=== PATIENT | female | born 1950 | race Caucasian/White ===

== ENCOUNTER 2020-12-22 12:19 | Outpatient (REF) | payer MEDICARE, OTHER, SELFPAY ==
--- NOTE | ~2020-12-22 | MM_ITS ---
EXAMINATION: MM SCREENING DIGITAL BREAST TOMOSYNTHESIS, BILATERAL CLINICAL INFORMATION: Screening. Asymptomatic. The lifetime risk of breast cancer based on the Tyrer-Cuzick Model is 4.0%. COMPARISON: Mammography: 06/20/2020 and studies dating back to 08/18/2016. TECHNIQUE: Digital breast tomosynthesis is performed in both the craniocaudal and mediolateral oblique views along with computer-aided detection (CAD). Synthesized 2D images are generated from the tomosynthesis. FINDINGS: There are scattered areas of fibroglandular density (ACR BI-RADS breast composition Category b). There are no significant masses, abnormal calcifications, or other abnormalities. There is a stable circumscribed density seen in the central aspect of the left breast on craniocaudal view which appears a little more prominent on generated views, however, on tomosynthesis views the questioned increase in size appears to be related to superimposed fibroglandular tissue rather than enlargement of the circumscribed density. MM/MM tomosynthesis screening BI IMPRESSION: There are no significant changes from prior study. ASSESSMENT: BI-RADS 2: Benign. RECOMMENDATION: Routine annual mammography screening. This patient's information was entered into a reminder system with a target due date for their next mammogram.
== END 2020-12-22 12:20 | disposition home or self-care (01) ==
LOC: HO.MAMMO 12:19
PROVIDERS: PCP Internal Medicine; Visit Provider Internal Medicine
DX: Z12.31 Encounter for screening mammogram for malignant neoplasm of breast (principal)
CPT/HCPCS: 77063; 77067

== ENCOUNTER 2022-02-07 07:01 | Outpatient (REF) | payer MEDICARE, OTHER, SELFPAY ==
[2022-02-07 08:09] LABS: Alanine Aminotransferase 38 U/L (0-31); Albumin Level 4.3 g/dL (3.5-5.0); Alkaline Phosphatase 71 U/L (39-117); Anion Gap 16 (12-20); Aspartate Amino Transferase 26 U/L (5-31); Bilirubin Total 0.6 mg/dL (0.0-1.0); Blood Urea Nitrogen 23 mg/dL (9-16); Calcium 10.1 mg/dL (8.4-10.2); Carbon Dioxide 24 mmol/L (22-29); Chloride 106 mmol/L (96-108); Cholesterol 225 mg/dL; Estimated Glomerular Filt Rate > 60; Glucose Fasting 115 mg/dL (60-99); HDL Cholesterol 54 mg/dL; LDL Cholesterol Calculated 131 mg/dl; Potassium 3.9 mmol/L (3.3-5.1); Sodium 142 mmol/L (135-145); Total Protein 7.2 g/dL (6.5-8.0); Triglycerides 204 mg/dL
[2022-02-07 08:20] LABS: Thyroid Stimulating Hormone 1.22 uIU/mL (0.32-4.0)
== END 2022-02-07 07:02 | disposition home or self-care (01) ==
LOC: HO.LAB 07:01
PROVIDERS: PCP Internal Medicine; Visit Provider Internal Medicine
DX: E78.5 Hyperlipidemia, unspecified (principal); E66.3 Overweight; R03.0 Elevated blood-pressure reading, without diagnosis of hypertension
CPT/HCPCS: 36415; 80053; 80061; 84443

== ENCOUNTER 2022-11-07 07:03 | Outpatient (REF) | payer MEDICARE, SELFPAY ==
[2022-11-07 08:08] LABS: Alanine Aminotransferase 34 U/L (0-31); Albumin Level 4.3 g/dL (3.5-5.0); Alkaline Phosphatase 68 U/L (39-117); Anion Gap 19 (12-20); Aspartate Amino Transferase 25 U/L (5-31); Bilirubin Total 1.2 mg/dL (0.0-1.0); Blood Urea Nitrogen 17 mg/dL (9-16); Calcium 9.5 mg/dL (8.4-10.2); Carbon Dioxide 22 mmol/L (22-29); Chloride 107 mmol/L (96-108); Cholesterol 220 mg/dL; Estimated Glomerular Filt Rate 59; Glucose Fasting 120 mg/dL (60-99); HDL Cholesterol 54 mg/dL; LDL Cholesterol Calculated 134 mg/dl; Potassium 4.2 mmol/L (3.3-5.1); Sodium 144 mmol/L (135-145); Total Protein 6.9 g/dL (6.5-8.0); Triglycerides 164 mg/dL
== END 2022-11-07 07:04 | disposition home or self-care (01) ==
LOC: HO.LAB 07:03
PROVIDERS: PCP Internal Medicine; Visit Provider Internal Medicine
DX: E78.5 Hyperlipidemia, unspecified (principal); E78.00 Pure hypercholesterolemia, unspecified
CPT/HCPCS: 36415; 80053; 80061

== ENCOUNTER 2023-02-01 11:55 | Outpatient (REF) | payer MEDICARE, SELFPAY ==
--- NOTE | ~2023-02-01 | MM_ITS ---
EXAMINATION: MM SCREENING DIGITAL BREAST TOMOSYNTHESIS, BILATERAL CLINICAL INFORMATION: Screening. Asymptomatic. The lifetime risk of breast cancer based on the Tyrer-Cuzick Model is 4%. COMPARISON: Mammography: 12/22/2020, 06/20/2020, 12/18/2019, 12/12/2019, 10/03/2018; ultrasound left breast 12/18/2019. TECHNIQUE: Digital breast tomosynthesis is performed in both the craniocaudal and mediolateral oblique views along with computer-aided detection (CAD). Synthesized 2D images are generated from the tomosynthesis. FINDINGS: The breasts are almost entirely fatty (ACR BI-RADS breast composition Category a). Background stromal and fibroglandular markings are normal. The transient fat necrosis posterior medial left breast noted in 2019 has resolved. There is no developing density or architectural abnormality. There are scattered benign round, rim, predominantly dermal calcifications again seen. The axilla and skin contours are unremarkable. No significant changes. MM/MM tomosynthesis screening BI IMPRESSION: No mammographic evidence of malignancy. ASSESSMENT: BI-RADS 2: Benign RECOMMENDATION: Routine annual mammography screening. This patient's information was entered into a reminder system with a target due date for their next mammogram.
== END 2023-02-01 11:56 | disposition home or self-care (01) ==
LOC: HO.MAMMO 11:55
PROVIDERS: PCP Internal Medicine; Visit Provider Internal Medicine
DX: Z12.31 Encounter for screening mammogram for malignant neoplasm of breast (principal)
CPT/HCPCS: 77063; 77067

== ENCOUNTER 2023-04-10 06:41 | Outpatient (REF) | payer MEDICARE, SELFPAY ==
[2023-04-10 09:22] LABS: Alanine Aminotransferase 28 U/L (0-31); Albumin Level 4.1 g/dL (3.5-5.0); Alkaline Phosphatase 74 U/L (39-117); Anion Gap 17 (12-20); Aspartate Amino Transferase 19 U/L (5-31); Bilirubin Total 1.3 mg/dL (0.0-1.0); Blood Urea Nitrogen 18 mg/dL (9-16); Calcium 9.4 mg/dL (8.4-10.2); Carbon Dioxide 21 mmol/L (22-29); Chloride 110 mmol/L (96-108); Cholesterol 130 mg/dL; Estimated Glomerular Filt Rate > 60; Glucose Fasting 105 mg/dL (60-99); HDL Cholesterol 49 mg/dL; LDL Cholesterol Calculated 57 mg/dl; Sodium 144 mmol/L (135-145); Total Protein 6.9 g/dL (6.5-8.0); Triglycerides 123 mg/dL
== END 2023-04-10 06:42 | disposition home or self-care (01) ==
LOC: HO.LAB 06:41
PROVIDERS: PCP Internal Medicine; Visit Provider Internal Medicine
DX: Z00.00 Encounter for general adult medical examination without abnormal findings (principal); E78.5 Hyperlipidemia, unspecified
CPT/HCPCS: 36415; 80053; 80061

== ENCOUNTER 2023-04-16 14:55 | Outpatient (AMB) | payer MEDICARE, SELFPAY ==
--- NOTE | 2023-04-16 14:57 | A.OFFPC_ITS ---
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 Accompanied by: Self / Same As Patient Allergies penicillin V Allergy (Unknown, Verified 04/16/23 15:05) anaphylaxis tetracycline Allergy (Unknown, Verified 04/16/23 15:05) rash Compazine Allergy (Unknown, Uncoded 04/16/23 15:05) convulsions Medication List - Last Reconciled 04/16/23 by Kimber Wagner MD amlodipine 5 mg PO DAILY 90 days atorvastatin 20 mg PO BEDTIME 90 days blood pressure monitor (Blood Pressure Kit) As directed lisinopril 20 mg PO BID 90 days Tobacco use date assessed: 11/14/22 Fall risk assessment: No Falls in past year Last assessed Fall Risk: 04/16/23 Dental Screening Dental Screen Date: 04/16/23 Did you have a dental visit in the last 12 months?: Yes Did you have a dental problem in the last 6 months where you did not have access to dental care?: No Was dental information given to patient?: Patient has dentist HPI HPI Comments History of Present Illness Details This is a 72 year old female with hypertension, pure hypercholesterolemia and impaired glucose tolerance that comes today for follow- up on her conditions. Blood pressure stable. Cholesterol has markedly improved with statins. Glucose has markedly improved. No chest pain or shortness of breath. [facility] Medical History Elevated blood pressure reading in office without diagnosis of hypertension Essential hypertension Overweight Surgical History History of cholecystectomy Family History Mother Mental health disorder Father Lymphoma Social History Housing: Condominium Alcohol intake: never Patient Tobacco Use Status: Former Tobacco user Tobacco use type: Cigarette e-Cigarette/Vaping Use: Never Used Second Hand Smoke Exposure: No service: No Current occupational status: employed and retired Cognitive needs: No Hearing needs: No Vision needs: Yes Questionnaire Thrive Questionnaire Date Thrive assessed: 11/14/22 TAMEKA-7 AMB Questionnaire TAMEKA-7 Date TAMEKA - 7 assessed: 11/14/22 Source: Developed by Drs. Davide Ponce, Mirna Lund, Kg Junior and colleagues, with an educational neymar from [employer]. Review of Systems Const All systems reviewed & are unremarkable except as noted in HPI and below Eyes Reports no additional complaints, Denies change in vision and Denies other visual disturbances Card Denies chest pain at rest, Denies chest pain with activity, Denies edema, Denies irregular heart rhythm, Denies claudication, Denies dyspnea, Denies dyspnea on exertion, Denies orthopnea, Denies paroxysmal nocturnal dyspnea and Denies slow heart rate Resp Denies cough, Denies dyspnea and Denies dyspnea on exertion GI Denies abdominal pain, Denies change in bowel habits, Denies excessive flatus, Denies nausea and Denies vomiting Denies urinary incontinence, Denies urinary hesitancy and Denies urinary urgency Musc Denies abnormal gait, Denies atrophy, Denies deformity and Denies limited range of motion Skin/Breast Denies bleeding lesions, Denies changing lesions and Denies rash Neuro Denies abnormal gait and Denies lack of coordination Physical exam (Primary Care) Vital Signs: Last Vital Signs BP 124/80 04/16/23 14:58 BMI result Body Mass Index 28.9 Tobacco/Smoking Status: Tobacco use Status Tobacco use date assessed 11/14/22 04/16/23 15:03 Patient Tobacco Use Status Former Tobacco user 04/16/23 15:03 Tobacco use type Cigarette 04/16/23 15:03 e-Cigarette/Vaping Use Never Used 04/16/23 15:03 Thrive Assessment: Date of Thrive Assessment Date Thrive assessed 11/14/22 04/16/23 15:03 Eyes General: appearance normal, both eyes and all related structures Eyelids: Yes eyelids normal Conjunctivae: conjunctivae normal Neck Neck: Yes normal visual inspection and Yes supple Resp Effort & Inspection: normal respiratory effort Auscultation: clear to auscultation bilaterally Cardio Jugular venous distension: no JVD Rate: regular rate Rhythm: regular rhythm Heart sounds: S1 normal heart sound present and S2 normal heart sound present Extrem General: Yes full ROM Assessment and Plan Assessment & Plan (1) Essential hypertension: Code(s): I10 - Essential (primary) hypertension Plan: Continue lisinopril and amlodipine. Pressure goal is equal or less than 130/80 (2) Pure hypercholesterolemia: Code(s): E78.00 - Pure hypercholesterolemia, unspecified Plan: Continue statins. (3) Impaired glucose tolerance: Code(s): R73.02 - Impaired glucose tolerance (oral) Plan: Continue low-carbohydrate diet. Orders: Orders Comprehensive [place]. Panel Fast 7 Months I10 - Essential (primary) hypertension Lipid Panel 7 Months E78.5 - Hyperlipidemia, unspecified Coding Level of Care Code Est Pt Level 3 (20274) Diagnoses Essential hypertension I10 Pure hypercholesterolemia E78.00 Impaired glucose tolerance R73.02 Time Spent (min) 18
[2023-04-16 14:58] VITALS: BP 124/80; BMI 28.9
== END 2023-04-16 15:11 | disposition home or self-care (01) ==
PROVIDERS: PCP Internal Medicine; Visit Provider Internal Medicine
DX: I10 Essential (primary) hypertension (principal); E78.00 Pure hypercholesterolemia, unspecified; R73.02 Impaired glucose tolerance (oral)
CPT/HCPCS: 99213

== ENCOUNTER 2023-11-13 06:53 | Outpatient (REF) | payer MEDICARE, SELFPAY ==
[2023-11-13 08:37] LABS: Alanine Aminotransferase 34 U/L (0-31); Albumin Level 4.2 g/dL (3.5-5.0); Alkaline Phosphatase 81 U/L (39-117); Anion Gap 15 (12-20); Aspartate Amino Transferase 25 U/L (5-31); Bilirubin Total 1.1 mg/dL (0.0-1.0); Blood Urea Nitrogen 21 mg/dL (9-16); Calcium 9.7 mg/dL (8.4-10.2); Carbon Dioxide 23 mmol/L (22-29); Chloride 111 mmol/L (96-108); Cholesterol 134 mg/dL (<200); Estimated Glomerular Filt Rate 56; Glucose Fasting 114 mg/dL (60-99); HDL Cholesterol 43 mg/dL (>40); LDL Cholesterol Calculated 66 mg/dL (<100); Potassium 3.8 mmol/L (3.3-5.1); Sodium 145 mmol/L (135-145); Total Protein 7.4 g/dL (6.5-8.0); Triglycerides 128 mg/dL (<150)
== END 2023-11-13 06:54 | disposition home or self-care (01) ==
LOC: HO.LAB 06:53
PROVIDERS: PCP Internal Medicine; Visit Provider Internal Medicine
DX: I10 Essential (primary) hypertension (principal); E78.5 Hyperlipidemia, unspecified
CPT/HCPCS: 36415; 80053; 80061

== ENCOUNTER 2023-11-20 17:22 | Outpatient (AMB) | payer MEDICARE, SELFPAY ==
--- NOTE | 2023-11-20 17:18 | MHC.PC.OV ---
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 Accompanied by: Self / Same As Patient Allergies penicillin V Allergy (Unknown, Verified 11/20/23 17:42) anaphylaxis tetracycline Allergy (Unknown, Verified 11/20/23 17:42) rash Compazine Allergy (Unknown, Uncoded 11/20/23 17:42) convulsions Medication List - Last Reconciled 11/20/23 by Kimber Wagner MD amlodipine 5 mg PO DAILY 90 days atorvastatin 20 mg PO BEDTIME 90 days blood pressure monitor (Blood Pressure Kit) As directed lisinopril 20 mg PO BID 90 days Tobacco use date assessed: 11/20/23 Fall risk assessment: No Falls in past year Last assessed Fall Risk: 11/20/23 Dental Screening Dental Screen Date: 11/20/23 Did you have a dental visit in the last 12 months?: Yes Did you have a dental problem in the last 6 months where you did not have access to dental care?: No Was dental information given to patient?: Patient has dentist HPI HPI Comments History of Present Illness Details This is a 73-year-old female that comes for her physical exam. Mammogram done January 2023. Had Cologuard done 2021 and was negative. No family history of colon cancer. Denies blood in the stools. Blood pressure stable. Has impaired glucose tolerance and was advised that if unintentional weight loss, polyuria or polydipsia are present to let me know. Cholesterol stable with statins. [facility] Medical History Essential hypertension Overweight Elevated blood pressure reading in office without diagnosis of hypertension Surgical History History of cholecystectomy Family History Mother Mental health disorder Father Lymphoma Social History Housing: Condominium Alcohol intake: never Patient Tobacco Use Status: Former Tobacco user Tobacco use type: Cigarette e-Cigarette/Vaping Use: Never Used Second Hand Smoke Exposure: No service: No Current occupational status: employed and retired Cognitive needs: No Hearing needs: No Vision needs: Yes Questionnaire PHQ-9 Over the last 2 weeks, how often have you been bothered by any of the following problems? 1. Little interest or pleasure in doing things: not at all 2. Feeling down, depressed, or hopeless: not at all 3. Trouble falling or staying asleep, or sleeping too much: not at all 4. Feeling tired or having little energy: not at all 5. Poor appetite or overeating: not at all 6. Feeling bad about yourself - or that you are a failure or have let yourself or your family down: not at all 7. Trouble concentrating on things, such as reading the newspaper or watching television: not at all 8. Moving or speaking so slowly that other people could have noticed. Or the opposite - being so fidgety or restless that you have been moving around a lot more than usual: not at all 9. Thoughts that you would be better off or of hurting yourself in some way: not at all Total score: 0 Depression Screening Interpretation: Negative Depression Screening Done: Yes 94704 - PHQ-9 Billing: Yes Source: Developed by Drs. Davide Ponce, Mirna Lund, Kg Junior and colleagues, with an educational neymar from [employer]. Thrive Questionnaire Date Thrive assessed: 11/20/23 I am a: Patient What is your living situation today?: I have a steady place to live Within the past 12 months, did the food you bought not last and you didn't have the money to get more?: Never true Within the past 12 months, did you worry whether your food would run out before you got money to buy more?: Never true Do you have trouble paying for medicines?: No Do you have trouble getting transportation to medical appointments?: No Do you have trouble paying your heating and electricity bill?: No Do you have trouble taking care of your child, family member or friend?: No Do you have trouble with day-to-day activities such as bathing, preparing meals, shopping, managing finances, etc.?: No Are you currently unemployed and looking for a job?: No Are you interested in more education?: No Please select the resources that you would like help with: None Currently or been in a relationship where the following occur: no concerns reported THRIVE Score: 0 AUDIT C Alcohol Use Questionnaire (AUDIT-C) 1. How often do you have a drink containing alcohol?: Never Total Score: 0 Score Reviewed/Action Taken: No TAMEKA-7 AMB Questionnaire TAMEKA-7 Date TAMEKA - 7 assessed: 11/20/23 Feeling nervous, anxious, or on edge: 0 = Not at all Not being able to stop or control worryin = Not at all Worrying too much about different things: 0 = Not at all Trouble relaxin = Not at all Being so restless that it is hard to sit still: 0 = Not at all Becoming easily annoyed or irritable: 0 = Not at all Feeling afraid as if something awful might happen: 0 = Not at all Total TAMEKA-7 score (0-4 normal; 5-9 mild; 10-14 moderate; 15-21 severe): 0 Source: Developed by Drs. Davide Ponce, Mirna Lund, Kg Junior and colleagues, with an educational neymar from [employer]. TAMEKA-7 Assessment Billing TAMEKA-7 Assessment Tool: TAMEKA-7 Assessment 47227 Review of Systems Const All systems reviewed & are unremarkable except as noted in HPI and below Eyes Reports no additional complaints, Denies change in vision and Denies other visual disturbances Card Denies chest pain at rest, Denies chest pain with activity, Denies edema, Denies irregular heart rhythm, Denies claudication, Denies dyspnea, Denies dyspnea on exertion, Denies orthopnea, Denies paroxysmal nocturnal dyspnea and Denies slow heart rate Resp Denies cough, Denies dyspnea and Denies dyspnea on exertion GI Denies abdominal pain, Denies change in bowel habits, Denies excessive flatus, Denies nausea and Denies vomiting Denies urinary incontinence, Denies urinary hesitancy and Denies urinary urgency Musc Denies abnormal gait, Denies atrophy, Denies deformity and Denies limited range of motion Skin/Breast Denies bleeding lesions, Denies changing lesions and Denies rash Neuro Denies abnormal gait, Denies behavioral changes, Denies confusion and Denies lack of coordination Psych Denies behavioral changes and Denies confusion Physical exam (Primary Care) Vital Signs: Last Vital Signs BP 132/86 11/20/23 17:20 BMI result Body Mass Index 28.9 Tobacco/Smoking Status: Tobacco use Status Tobacco use date assessed 11/20/23 11/20/23 17:27 Patient Tobacco Use Status Former Tobacco user 11/20/23 17:27 Tobacco use type Cigarette 11/20/23 17:27 e-Cigarette/Vaping Use Never Used 11/20/23 17:27 PHQ-9: PHQ-9 Score PHQ-9: Total score 0 11/20/23 17:27 Depression Screening Interpretation: Negative Thrive Assessment: Date of Thrive Assessment Date Thrive assessed 11/20/23 11/20/23 17:27 Currently or been in a relationship where the following occur: no concerns reported Const General: No confusion Orientation/consciousness: patient oriented x3 and No confusion HENMT Head: Yes normal to inspection, Yes normocephalic and Yes atraumatic Ears: external ears normal Eyes General: appearance normal, both eyes and all related structures Eyelids: Yes eyelids normal Conjunctivae: conjunctivae normal Neck Neck: Yes normal visual inspection and Yes supple Resp Effort & Inspection: normal respiratory effort Auscultation: clear to auscultation bilaterally Cardio Jugular venous distension: no JVD Rate: regular rate Rhythm: regular rhythm Heart sounds: S1 normal heart sound present and S2 normal heart sound present GI Inspection: Yes normal to inspection Palpation (GI): Soft to palpation and nontender Auscultation: normal bowel sounds Skin General skin exam: no rashes or lesions noted Neuro General: patient oriented x3, no focal motor deficits and No confusion Extrem General: Yes full ROM Psych Appearance: grossly normal Assessment and Plan Assessment & Plan (1) Physical exam: Code(s): Z00.00 - Encounter for general adult medical examination without abnormal findings Plan: Repeat in a year. Orders: Orders XR DEXA axial skeleton Today N95.9 - Unspecified menopausal and perimenopausal disorder Coding Level of Care Code Est Pt Prev Care >65y(30106) Diagnoses Physical exam Z00.00 Additional Codes TAMEKA-7 Assessment Billing - TAMEKA-7 Assessment Tool: TAMEKA-7 Assessment 31646 ([id number]) Time Spent (min) 31
[2023-11-20 17:20] VITALS: BP 132/86; BMI 28.9
== END 2023-11-20 17:52 | disposition home or self-care (01) ==
PROVIDERS: PCP Internal Medicine; Visit Provider Internal Medicine
DX: Z00.00 Encounter for general adult medical examination without abnormal findings (principal)
CPT/HCPCS: 99397

== ENCOUNTER 2024-02-07 13:48 | Outpatient (REF) | payer MEDICARE, SELFPAY ==
--- NOTE | ~2024-02-07 | MM_ITS ---
EXAMINATION: BONE DENSITOMETRY CLINICAL INDICATION: Menopause. COMPARISON: This is the patient's baseline examination. TECHNIQUE: Using a [place] [employer] DXA System (software version: 13.1) manufactured by [employer], dual-energy x-ray absorptiometry was performed of the lumbar spine and left hip. The images are of good technical quality. Summary results are attached. FINDINGS: LEFT FEMUR, NECK: BMD 0.939 g/cm2, Z-score 0.8, T-score -0.7, normal. LEFT FEMUR, TOTAL: BMD 1.130 g/cm2, Z-score 2.3, T-score 1.0, normal. AP SPINE L1-L4 (excluding L2 and L3): The data of L1-L4 has been changed to exclude the L2 and L3 vertebral bodies, because degenerative sclerosis at these levels may cause overestimation of lumbar spine density. BMD 1.684 g/cm2, Z-score 5.6, T-score 4.3, normal. IDENTIFIED RISK FACTORS: Menopause. HISTORY OF FRACTURE: None listed. MEDICATIONS: None listed. MM/XR DEXA axial skeleton IMPRESSION: 1. DIAGNOSIS: Normal bone density based on the lowest T-score value of -0.7 in the femoral neck applying World Health Organization criteria. 2. 10-YEAR FRACTURE RISK PREDICTION, FRAX: According to the guidelines, FRAX calculation should only be performed on patients in the osteopenia bone density category. Therefore, FRAX was not performed on this patient. 3. Treatment Recommendations: NOF guidelines recommend consideration for treatment in postmenopausal women and men age 50 and older presenting with the following: -A hip or vertebral (clinical or morphometric) fracture. -T-score less than or equal to -2.5 at the femoral neck or spine after appropriate evaluation to exclude secondary causes. -Low bone mass at the hip or spine and a 10-year fracture probability by FRAX of greater than or equal to 3% for hip fracture or greater than or equal to 20% for major osteoporotic fracture based on the [place] adapted WHO algorithm. 4. Other Recommendations: All treatment decisions require clinical judgment and consideration of individual patient factors, including patient preferences, comorbidities, previous drug use, risk factors not captured in the FRAX model (e.g. frailty, falls, vitamin D deficiency, increased bone turnover, interval significant decline in bone density) and possible under or overestimation of fracture risk by FRAX. FUTURE SCAN RECOMMENDATION: People with diagnosed cases of osteoporosis or at high risk for fracture should have regular bone mineral density tests. For patients eligible for Medicare, routine testing is allowed once every 2 years. The testing frequency can be increased to one year for patients who have rapidly progressing disease, those who are receiving or discontinuing medical therapy to restore bone mass, or have additional risk factors.
--- NOTE | ~2024-02-07 | MM_ITS ---
EXAMINATION: MM SCREENING DIGITAL BREAST TOMOSYNTHESIS, BILATERAL CLINICAL INFORMATION: Screening. Asymptomatic. COMPARISON: Mammography: This study is compared with prior exams dating back to 2019. TECHNIQUE: Digital breast tomosynthesis is performed in both the craniocaudal and mediolateral oblique views along with computer-aided detection (CAD). Synthesized 2D images are generated from the tomosynthesis. FINDINGS: The breasts are almost entirely fatty (ACR BI-RADS breast composition Category a). In the central portion of the left breast there is a 4 mm focal asymmetry which warrants additional mammographic and targeted sonographic imaging. In the right breast, there no are no significant masses, abnormal calcifications, or other abnormalities. MM/MM tomosynthesis screening BI IMPRESSION: Centrally located left breast focal asymmetry warrants additional mammographic and targeted sonographic imaging. No mammographic signs of malignancy right breast. ASSESSMENT: BI-RADS BI-RADS 0 - Incomplete: Needs additional Imaging. RECOMMENDATION: 1. Additional views of the left breast. 2. Targeted ultrasound if warranted after review of the additional views. 3. Radiology department staff will contact the patient for additional imaging. Additional Imaging required This examination should not preclude the clinical evaluation of a suspicious palpable abnormality. This patient's information was entered into a reminder system with a target due date for their next mammogram.
== END 2024-02-07 13:49 | disposition home or self-care (01) ==
LOC: HO.MAMMO 13:48
PROVIDERS: PCP Internal Medicine; Visit Provider Internal Medicine
DX: Z12.31 Encounter for screening mammogram for malignant neoplasm of breast (principal); Z13.820 Encounter for screening for osteoporosis; Z78.0 Asymptomatic menopausal state
CPT/HCPCS: 77063; 77067; 77080

== ENCOUNTER → 2024-02-07 14:00 | Outpatient (BNV) | payer MEDICARE, SELFPAY | PROVIDERS: PCP Internal Medicine; Visit Provider Radiology Diagnostic Radiology | DX: Z12.31 Encounter for screening mammogram for malignant neoplasm of breast (principal) | CPT/HCPCS: 77063; 77067 ==

== ENCOUNTER 2024-03-20 14:12 | Outpatient (REF) | payer MEDICARE, SELFPAY ==
--- NOTE | ~2024-03-20 | US_ITS ---
EXAMINATION: MM DIAGNOSTIC DIGITAL BREAST TOMOSYNTHESIS, LEFT US BREAST LIMITED, LEFT MAMMOGRAPHY: CLINICAL INFORMATION: Left breast central, middle one third, focal oval 4 mm mass circumscribed for additional views and sonography. COMPARISON: Mammography: 02/07/2024. 01/30/2023, 12/22/2020, and dating back to 08/18/2016. Ultrasound left breast 12/18/2019 demonstrating fat necrosis 11:00 axis. TECHNIQUE: Digital left breast tomosynthesis is performed in the following views: Full-field 3-D left mediolateral view, and spot compression 3-D left MLO and CC views. This was followed by targeted left breast ultrasound. FINDINGS: The breasts are almost entirely fatty (ACR BI-RADS breast composition Category a). There is a circumscribed isodense mass in the 6:00 retroareolar left breast, middle one third, approximately 4 mm in diameter, which measured approximately 3 mm in diameter on 12/18/2019 exam. There is a slightly more anterior retroareolar nodule measuring 3 mm, which is unchanged. We will interrogate these with ultrasound. Otherwise, stable lymph nodes in the axillary tail left breast. Previously seen focus of fat necrosis has resolved. No additional suspicious mass, suspicious calcifications, or developing architectural distortion left breast. Slightly prominent left axillary lymph node, stable from numerous prior exams, benign. ULTRASOUND: CLINICAL INFORMATION: As above. Evaluate 4 mm 6:00 retroareolar circumscribed nodule. 3 mm slightly more anterior retroareolar circumscribed nodule. COMPARISON: None relevant. TECHNIQUE: Targeted sonographic evaluation was performed using a high frequency linear transducer. Attention was given to the retroareolar left breast. Selected archived documentation. FINDINGS: LEFT BREAST: There is predominantly fatty breast tissue identified. In the 6:00 axis approximately 2 cm from the nipple, there is a 3 x 2 x 3 mm minimally complicated cyst, correlating well with the mammographic focus of concern. Given that this has only increased 1 mm in diameter in 4 years, this is a benign finding. No further follow-up recommended. No sonographic suspicious masses, abnormal shadowing, new cystic abnormalities, or architectural distortion identified in the region examined. US/US breast LT limited mamm only IMPRESSION: -There are no findings in the left breast suspicious for malignancy. -Benign findings left breast as discussed. -Recommend the patient return to routine annual screening. OVERALL ASSESSMENT: Mammography: BI-RADS 2 - Benign Findings Ultrasound: BI-RADS 2 - Benign Findings RECOMMENDATION: 1 year F/U This patient's information was entered into a reminder system with a target due date for their next mammogram.
== END 2024-03-20 14:13 | disposition home or self-care (01) ==
LOC: HO.MAMMO 14:12
PROVIDERS: PCP Internal Medicine; Visit Provider Internal Medicine
DX: N64.89 Other specified disorders of breast (principal)
CPT/HCPCS: 76642; 77061; 77065

== ENCOUNTER → 2024-03-20 14:30 | Outpatient (BNV) | payer MEDICARE, SELFPAY | PROVIDERS: PCP Internal Medicine; Visit Provider Radiology Diagnostic Radiology | DX: N63.25 Unspecified lump in the left breast, overlapping quadrants (principal) | CPT/HCPCS: 76642; 77065; G0279 ==

== ENCOUNTER 2024-05-25 16:08 | Outpatient (AMB) | payer MEDICARE, SELFPAY ==
[2024-05-25 16:16] VITALS: BP 126/80; BMI 29.6
--- NOTE | 2024-05-25 16:16 | MHC.PC.OV ---
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 Accompanied by: Self / Same As Patient Allergies penicillin V Allergy (Unknown, Verified 05/25/24 16:26) anaphylaxis tetracycline Allergy (Unknown, Verified 05/25/24 16:26) rash Compazine Allergy (Unknown, Uncoded 05/25/24 16:26) convulsions Medication List - Last Reconciled 05/25/24 by Kimber Wagner MD amlodipine 5 mg PO DAILY 90 days atorvastatin 20 mg PO BEDTIME 90 days blood pressure monitor (Blood Pressure Kit) As directed lisinopril 20 mg PO BID 90 days Tobacco use date assessed: 11/20/23 Fall risk assessment: No Falls in past year Last assessed Fall Risk: 05/25/24 Dental Screening Dental Screen Date: 11/20/23 HPI HPI Comments History of Present Illness Details This is a 73-year-old female with hypertension and pure hypercholesterolemia that comes today for follow-up on her conditions. Blood pressure stable. Last cholesterol was well controlled with statins. Denies any chest pain or shortness on breath. No fever or cough. Compliant with medications. [facility] Medical History Essential hypertension Overweight Elevated blood pressure reading in office without diagnosis of hypertension Surgical History History of cholecystectomy Family History Mother Mental health disorder Father Lymphoma Social History Housing: Condominium Alcohol intake: never Patient Tobacco Use Status: Former Tobacco user Tobacco use type: Cigarette e-Cigarette/Vaping Use: Never Used Second Hand Smoke Exposure: No service: No Current occupational status: employed and retired Cognitive needs: No Hearing needs: No Vision needs: Yes Questionnaire Thrive Questionnaire Date Thrive assessed: 11/20/23 TAMEKA-7 AMB Questionnaire TAMEKA-7 Date TAMEKA - 7 assessed: 11/20/23 Source: Developed by Mirna Harper B.W. Kevon, Kg Junior and colleagues, with an educational neymar from [employer]. Review of Systems Const All systems reviewed & are unremarkable except as noted in HPI and below Card Denies chest pain at rest, Denies chest pain with activity, Denies edema, Denies irregular heart rhythm, Denies claudication, Denies dyspnea, Denies dyspnea on exertion, Denies orthopnea, Denies paroxysmal nocturnal dyspnea and Denies slow heart rate Resp Denies cough, Denies dyspnea and Denies dyspnea on exertion Denies urinary incontinence, Denies urinary hesitancy and Denies urinary urgency Musc Denies atrophy, Denies deformity and Denies limited range of motion Skin/Breast Denies bleeding lesions, Denies changing lesions and Denies rash Physical exam (Primary Care) Vital Signs: Last Vital Signs BP 126/80 05/25/24 16:16 BMI result Body Mass Index 29.6 Tobacco/Smoking Status: Tobacco use Status Tobacco use date assessed 11/20/23 05/25/24 16:17 Patient Tobacco Use Status Former Tobacco user 05/25/24 16:17 Tobacco use type Cigarette 05/25/24 16:17 e-Cigarette/Vaping Use Never Used 05/25/24 16:17 Thrive Assessment: Date of Thrive Assessment Date Thrive assessed 11/20/23 05/25/24 16:17 Resp Effort & Inspection: normal respiratory effort Auscultation: clear to auscultation bilaterally Cardio Jugular venous distension: no JVD Rate: regular rate Rhythm: regular rhythm Heart sounds: S1 normal heart sound present and S2 normal heart sound present Neuro General: no focal motor deficits Extrem General: Yes full ROM Assessment and Plan Assessment & Plan (1) Essential hypertension: Code(s): I10 - Essential (primary) hypertension Plan: Continue lisinopril and amlodipine. Blood pressure goal is equal or less than 130/80. (2) Pure hypercholesterolemia: Code(s): E78.00 - Pure hypercholesterolemia, unspecified Plan: Continue statins. Orders: Orders Comprehensive [place]. Panel Fast 6 Months I10 - Essential (primary) hypertension Lipid Panel 6 Months E78.5 - Hyperlipidemia, unspecified Coding Level of Care Code Est Pt Level 3 (99264) Complex EM visit Add On G2211 Diagnoses Essential hypertension I10 Pure hypercholesterolemia E78.00 Time Spent (min) 19
== END 2024-05-25 16:37 | disposition home or self-care (01) ==
PROVIDERS: PCP Internal Medicine; Visit Provider Internal Medicine
DX: I10 Essential (primary) hypertension (principal); E78.00 Pure hypercholesterolemia, unspecified
CPT/HCPCS: 99213; G2211

== ENCOUNTER 2024-11-30 13:31 | Outpatient (AMB) | payer MEDICARE, SELFPAY ==
--- NOTE | 2024-11-30 14:05 | A.OFFPC_ITS ---
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 Accompanied by: Self / Same As Patient Allergies penicillin V Allergy (Unknown, Verified 11/30/24 14:31) anaphylaxis tetracycline Allergy (Unknown, Verified 11/30/24 14:31) rash Compazine Allergy (Unknown, Uncoded 11/30/24 14:31) convulsions Medication List - Last Reconciled 11/30/24 by YAZMIN Hollins amlodipine 5 mg PO DAILY 90 days atorvastatin 20 mg PO BEDTIME 90 days blood pressure monitor (Blood Pressure Kit) As directed lisinopril 20 mg PO BID 90 days Tobacco use date assessed: 11/30/24 Fall risk assessment: No Falls in past year Last assessed Fall Risk: 11/30/24 Dental Screening Dental Screen Date: 11/30/24 Did you have a dental visit in the last 12 months?: Yes Did you have a dental problem in the last 6 months where you did not have access to dental care?: No Was dental information given to patient?: Patient has dentist HPI LT hip pain(pulled muscle) HPI Details The patient is a 74 year old female with significant past medication history of reports that she has pain in her left side that started last 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 She was informed to continue the warm compress and she can intermittently take Tylenol as needed. Discussed with patient that she needs to do some stretches. The patient to follow up if her symptoms are not improving-consider sending the patient to PT, but she wants to hold off The patient blood pressure was elevated in office. Reports that she did not take her blood pressure medication because she left the house too early. [facility] Medical History Essential hypertension Overweight Elevated blood pressure reading in office without diagnosis of hypertension Surgical History History of cholecystectomy Family History Mother Mental health disorder Father Lymphoma Social History Housing: Condominium Alcohol intake: never Patient Tobacco Use Status: Former Tobacco user Tobacco use type: Cigarette e-Cigarette/Vaping Use: Never Used Second Hand Smoke Exposure: No service: No Current occupational status: employed and retired Cognitive needs: No Hearing needs: No Vision needs: Yes Questionnaire PHQ-9 Over the last 2 weeks, how often have you been bothered by any of the following problems? 1. Little interest or pleasure in doing things: not at all 2. Feeling down, depressed, or hopeless: not at all 3. Trouble falling or staying asleep, or sleeping too much: not at all 4. Feeling tired or having little energy: not at all 5. Poor appetite or overeating: not at all 6. Feeling bad about yourself - or that you are a failure or have let yourself or your family down: not at all 7. Trouble concentrating on things, such as reading the newspaper or watching television: not at all 8. Moving or speaking so slowly that other people could have noticed. Or the opposite - being so fidgety or restless that you have been moving around a lot more than usual: not at all 9. Thoughts that you would be better off or of hurting yourself in some way: not at all Total score: 0 Depression Screening Interpretation: Negative Depression Screening Done: Yes 13169 - PHQ-9 Billing: Yes Source: Developed by Drs. Davide Ponce, Mirna Lund, Kg Junior and colleagues, with an educational neymar from [employer]. Thrive Questionnaire Date Thrive assessed: 11/30/24 I am a: Patient What is your living situation today?: I have a steady place to live Within the past 12 months, did the food you bought not last and you didn't have the money to get more?: Never true Within the past 12 months, did you worry whether your food would run out before you got money to buy more?: Never true Do you have trouble paying for medicines?: No Do you have trouble getting transportation to medical appointments?: No Do you have trouble paying your heating and electricity bill?: No Do you have trouble taking care of your child, family member or friend?: No Do you have trouble with day-to-day activities such as bathing, preparing meals, shopping, managing finances, etc.?: No Are you currently unemployed and looking for a job?: No Are you interested in more education?: No Please select the resources that you would like help with: None Currently or been in a relationship where the following occur: No concerns reported THRIVE Score: 0 AUDIT C Alcohol Use Questionnaire (AUDIT-C) 1. How often do you have a drink containing alcohol?: Never 3. How often do you have six or more drinks on one occasion?: Never Total Score: 0 Score Reviewed/Action Taken: No TAMEKA-7 AMB Questionnaire TAMEKA-7 Date TAMEKA - 7 assessed: 11/30/24 Feeling nervous, anxious, or on edge: 0 = Not at all Not being able to stop or control worryin = Not at all Worrying too much about different things: 0 = Not at all Trouble relaxin = Not at all Being so restless that it is hard to sit still: 0 = Not at all Becoming easily annoyed or irritable: 0 = Not at all Feeling afraid as if something awful might happen: 0 = Not at all Total TAMEKA-7 score (0-4 normal; 5-9 mild; 10-14 moderate; 15-21 severe): 0 Source: Developed by Drs. Davide Ponce, Mirna Lund, Kg Junior and colleagues, with an educational neymar from [employer]. TAMEKA-7 Assessment Billing TAMEKA-7 Assessment Tool: TAMEKA-7 Assessment 73804 Review of Systems Const Details: Denies chills, Denies fatigue, Denies fever(s), Denies headache(s) and Denies weakness HEENT Denies change in vision, Denies dizziness, Denies headache(s), Denies hearing loss, Denies nasal congestion, Denies sinus pain, Denies sinus pressure and Denies sore throat Card Denies chest pain, Denies lightheadedness, Denies dyspnea and Denies other (palpitations) Resp Denies cough, Denies dyspnea and Denies wheezing GI Denies abdominal pain, Denies melena, Denies hematochezia, Denies change in bowel habits, Denies dyspepsia and Denies nausea Denies hematuria and Denies dysuria Musc Denies abnormal gait, +myalgias (reports pain in her left side), Denies arthralgias, Denies numbness and Denies tingling Skin/Breast Denies rash, Denies unusual bruising and Denies wounds Neuro Denies abnormal gait, Denies dizziness, Denies headache(s), Denies memory loss, Denies numbness, Denies Sensory deficit (Neuro), Denies tingling and Denies weakness Physical exam (Primary Care) Vital Signs: Last Vital Signs Temp 97.8 F 11/30/24 14:15 Pulse 86 11/30/24 14:15 BP 146/82 H 11/30/24 14:15 Pulse Ox 98 11/30/24 14:15 Oxygen Delivery Method Room Air 11/30/24 14:15 BMI result Body Mass Index 28.6 Tobacco/Smoking Status: Tobacco use Status Tobacco use date assessed 11/30/24 11/30/24 14:21 Patient Tobacco Use Status Former Tobacco user 11/30/24 14:05 Tobacco use type Cigarette 11/30/24 14:05 e-Cigarette/Vaping Use Never Used 11/30/24 14:05 PHQ-9: PHQ-9 Score PHQ-9: Total score 0 11/30/24 14:39 Depression Screening Interpretation: Negative Thrive Assessment: Date of Thrive Assessment Date Thrive assessed 11/30/24 11/30/24 14:21 Currently or been in a relationship where the following occur: No concerns reported Const Other: General: no acute distress, well developed, alert and awake Nutritional Appearance: well nourished Orientation/consciousness: patient oriented x3 HENMT Head: Yes normocephalic and Yes atraumatic Eyes Pupils: Equal, round and reactive pupils present and Pupil accommodation reflex normal EOM: EOMs intact bilaterally Neck Neck: Yes normal visual inspection, Yes no lymphadenopathy and Yes trachea midline Thyroid: Thyroid normal Resp Effort & Inspection: normal respiratory effort Auscultation: clear to auscultation bilaterally Cardio Rate: regular rate Rhythm: regular rhythm Heart sounds: S1 normal heart sound present, S2 normal heart sound present, no gallops, no murmurs and no rubs GI Palpation (GI): abdomen soft and nontender Auscultation: normal bowel sounds General: Yes no CVA tenderness Back/Spine/Pelvis Back: no CVA tenderness Cervical Spine: cervical ROM normal and No Cervical spine tenderness Thoracic/Lumbar Spine: no lumbar tender, left lateral thoracic tenderness with movement, but not with palpation Coding Level of Care Code Est Pt Level 3 (53813) Diagnoses Acute left-sided thoracic back pain M54.6 Chronicity: acute Additional Codes TAMEKA-7 Assessment Billing - TAMEKA-7 Assessment Tool: TAMEKA-7 Assessment 20499 ([id number]) PHQ-9 - 37297 - PHQ-9 Billing: Yes ([id number]) Time Spent (min) 29 Assessment & Plan Assessment & Plan (1) Left-sided thoracic back pain: Code(s): M54.6 - Pain in thoracic spine Category: Medical Qualifiers: Chronicity: acute Qualified Code(s): M54.6 - Pain in thoracic spine Plan: 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 Reports that the mouses only come during the rolan time so she is waiting for the summer to come. Discussed with the patient that her pain is most likely muscle strain from poor alignment from sleeping in the job coaching for extended periods. Will try the patient on Meloxicam 15 mg and lidocaine patch daily; she could continue the warm compress and tylenol prn. Encouraged the patient do stretches. The patient to return if her pain is not resolving or worsening. Medications: New lidocaine 5% leave on most painful area for up to 12 hrs 1 patch topical DAILY 30 ea 0RF M54.50 - Low back pain, unspecified meloxicam 15 mg PO DAILY 30 tabs 2RF
[2024-11-30 14:15] VITALS: BP 146/82; PULSE 86; TEMP 36.6; O2SAT 98; BMI 28.6
== END 2024-11-30 17:11 | disposition home or self-care (01) ==
PROVIDERS: PCP Internal Medicine
DX: M54.6 Pain in thoracic spine (principal)

== ENCOUNTER → 2024-11-30 13:31 | Outpatient (BNVA) | payer MEDICARE, SELFPAY | PROVIDERS: PCP Internal Medicine | DX: M54.6 Pain in thoracic spine (principal) | CPT/HCPCS: 96127; 99212 ==

== ENCOUNTER 2025-01-04 12:32 | Outpatient (AMB) | payer MEDICARE, SELFPAY ==
[2025-01-04 12:37] VITALS: BP 122/80; BMI 28.6
--- NOTE | 2025-01-04 12:37 | MHC.PC.OV ---
Vital Signs 01/04/25 12:37 Height 5 ft 4.5 in Weight 169 lb BMI 28.6 BP 122/80 Blood Pressure Location Lt brachial Position Sitting Intake Visit Reasons: annual exam - see comments Intelligence Manager Required: No Accompanied by: Self / Same As Patient Allergies penicillin V Allergy (Unknown, Verified 01/04/25 12:43) anaphylaxis tetracycline Allergy (Unknown, Verified 01/04/25 12:43) rash Compazine Allergy (Unknown, Uncoded 01/04/25 12:43) convulsions Medication List - Last Reconciled 01/04/25 by Kimber Wagner MD amlodipine 5 mg PO DAILY 90 days atorvastatin 20 mg PO BEDTIME 90 days blood pressure monitor (Blood Pressure Kit) As directed lidocaine 5% 1 patch topical DAILY lisinopril 20 mg PO BID 90 days meloxicam 15 mg PO DAILY Tobacco use date assessed: 11/30/24 Fall risk assessment: No Falls in past year Last assessed Fall Risk: 01/04/25 Dental Screening Dental Screen Date: 11/30/24 HPI HPI Comments History of Present Illness Details The patient is a 74-year-old female presenting for an annual physical examination. Vaccinations for COVID-19 and influenza are current, with plans for annual boosters. She needs a tetanus booster to be received at a pharmacy. Her hypertension is managed with amlodipine and lisinopril; hyperlipidemia is treated with atorvastatin. She uses meloxicam for occasional pain. A normal bone density test was done in 2023, and a follow-up is planned for 2025. Her mammogram is up to date from less than a year ago. Recent Cologuard testing has results pending due to delayed pickup. She has a surgical history of cholecystectomy and allergies to penicillin, tetracycline, and Compazine. She quit smoking long ago and currently abstains from alcohol. Her family history notes mental health disorder in her mother and lymphoma in her father. She denies depression or anxiety and will repeat blood work to evaluate cholesterol, sugar, kidney, and liver functions soon. - COVID-19 and influenza vaccines: Current, plans for annual boosters. - Tetanus booster: Required, to be administered at a pharmacy. - Bone density test: Normal as of 2023, next due in 2025. - Mammogram: Up to date, completed less than a year ago. - Cologuard test: Recent test completed, awaiting results. - Blood work: Repeat needed to evaluate cholesterol, sugar, kidney, and liver function. [facility] Medical History Essential hypertension Overweight Elevated blood pressure reading in office without diagnosis of hypertension Surgical History History of cholecystectomy Family History Mother Mental health disorder Father Lymphoma Social History Housing: [facility] Alcohol intake: never Patient Tobacco Use Status: Former Tobacco user Tobacco use type: Cigarette e-Cigarette/Vaping Use: Never Used Second Hand Smoke Exposure: No service: No Current occupational status: employed and retired Cognitive needs: No Hearing needs: No Vision needs: Yes Questionnaire PHQ-9 Over the last 2 weeks, how often have you been bothered by any of the following problems? 1. Little interest or pleasure in doing things: nearly every day 2. Feeling down, depressed, or hopeless: not at all 3. Trouble falling or staying asleep, or sleeping too much: not at all 4. Feeling tired or having little energy: not at all 5. Poor appetite or overeating: not at all 6. Feeling bad about yourself - or that you are a failure or have let yourself or your family down: not at all 7. Trouble concentrating on things, such as reading the newspaper or watching television: not at all 8. Moving or speaking so slowly that other people could have noticed. Or the opposite - being so fidgety or restless that you have been moving around a lot more than usual: not at all 9. Thoughts that you would be better off or of hurting yourself in some way: not at all Total score: 3 Depression Screening Interpretation: Positive Depression Screening Follow-up: Existing condition and Follow-up Visit Requested Depression Screening Done: Yes 80796 - PHQ-9 Billing: Yes Source: Developed by Drs. Davide Ponce, Mirna Lund, Kg Junior and colleagues, with an educational neymar from [employer]. Thrive Questionnaire Date Thrive assessed: 11/30/24 I am a: Patient What is your living situation today?: I choose not to answer this question Within the past 12 months, did the food you bought not last and you didn't have the money to get more?: I choose not to answer this question Within the past 12 months, did you worry whether your food would run out before you got money to buy more?: I choose not to answer this question Do you have trouble paying for medicines?: No Do you have trouble getting transportation to medical appointments?: No Do you have trouble paying your heating and electricity bill?: No Do you have trouble taking care of your child, family member or friend?: I choose not to answer this question Do you have trouble with day-to-day activities such as bathing, preparing meals, shopping, managing finances, etc.?: I choose not to answer this question Are you currently unemployed and looking for a job?: I choose not to answer this question Are you interested in more education?: I choose not to answer this question Please select the resources that you would like help with: None Currently or been in a relationship where the following occur: I choose not to answer THRIVE Score: 0 AUDIT C Alcohol Use Questionnaire (AUDIT-C) 1. How often do you have a drink containing alcohol?: Never Total Score: 0 Score Reviewed/Action Taken: No TAMEKA-7 AMB Questionnaire TAMEKA-7 Date TAMEKA - 7 assessed: 11/30/24 Feeling nervous, anxious, or on edge: 0 = Not at all Not being able to stop or control worryin = Not at all Worrying too much about different things: 0 = Not at all Trouble relaxin = Not at all Being so restless that it is hard to sit still: 0 = Not at all Becoming easily annoyed or irritable: 0 = Not at all Feeling afraid as if something awful might happen: 0 = Not at all Total TAMEKA-7 score (0-4 normal; 5-9 mild; 10-14 moderate; 15-21 severe): 0 Source: Developed by Drs. Davide Ponce, Mirna Lund, Kg Junior and colleagues, with an educational neymar from [employer]. TAMEKA-7 Assessment Billing TAMEKA-7 Assessment Tool: TAMEKA-7 Assessment 16741 Review of Systems Const All systems reviewed & are unremarkable except as noted in HPI and below Card Denies chest pain at rest, Denies chest pain with activity, Denies edema, Denies irregular heart rhythm, Denies claudication, Denies dyspnea, Denies dyspnea on exertion, Denies orthopnea, Denies paroxysmal nocturnal dyspnea and Denies slow heart rate Resp Denies cough, Denies dyspnea and Denies dyspnea on exertion GI Denies abdominal pain, Denies change in bowel habits, Denies excessive flatus, Denies nausea and Denies vomiting Neuro Denies behavioral changes, Denies confusion and Denies lack of coordination Psych Denies behavioral changes and Denies confusion Physical exam (Primary Care) Vital Signs: Last Vital Signs BP 122/80 01/04/25 12:37 BMI result Body Mass Index 28.6 Tobacco/Smoking Status: Tobacco use Status Tobacco use date assessed 11/30/24 01/04/25 12:40 Patient Tobacco Use Status Former Tobacco user 01/04/25 12:40 Tobacco use type Cigarette 01/04/25 12:40 e-Cigarette/Vaping Use Never Used 01/04/25 12:40 PHQ-9: PHQ-9 Score PHQ-9: Total score 3 01/04/25 12:40 Depression Screening Interpretation: Positive Depression Screening Follow-up: Existing condition and Follow-up Visit Requested Thrive Assessment: Date of Thrive Assessment Date Thrive assessed 11/30/24 01/04/25 12:40 Currently or been in a relationship where the following occur: I choose not to answer Const General: No confusion Orientation/consciousness: patient oriented x3 and No confusion HENMT Head: Yes normal to inspection, Yes normocephalic and Yes atraumatic Ears: external ears normal Eyes General: appearance normal, both eyes and all related structures Eyelids: Yes eyelids normal Conjunctivae: conjunctivae normal Neck Neck: Yes normal visual inspection and Yes supple Resp Effort & Inspection: normal respiratory effort Auscultation: clear to auscultation bilaterally Cardio Jugular venous distension: no JVD Rate: regular rate Rhythm: regular rhythm Heart sounds: S1 normal heart sound present and S2 normal heart sound present GI Inspection: Yes normal to inspection Palpation (GI): Soft to palpation and nontender Auscultation: normal bowel sounds Skin General skin exam: no rashes or lesions noted Neuro General: patient oriented x3, no focal motor deficits and No confusion Extrem General: Yes full ROM Psych Appearance: grossly normal Coding Level of Care Code Est Pt Prev Care >65y(74437) Diagnoses Physical exam Z00.00 Additional Codes PHQ-9 - 38299 - PHQ-9 Billing: Yes ([id number]) TAMEKA-7 Assessment Billing - TAMEKA-7 Assessment Tool: TAMEKA-7 Assessment 98018 ([id number]) Time Spent (min) 30 Assessment & Plan Assessment & Plan (1) Physical exam: Code(s): Z00.00 - Encounter for general adult medical examination without abnormal findings Category: Medical Plan Maintenance of vaccinations with annual COVID-19 and influenza boosters is crucial, with a tetanus booster planned at a pharmacy. The current antihypertensive regimen includes amlodipine and lisinopril. Hyperlipidemia management is with atorvastatin, with meloxicam reserved for pain relief. The patient will undergo blood work to assess cholesterol, glucose, kidney, and liver status. Mammogram screening is up to date, and Cologuard results are pending for follow-up. Emphasis on regular check-ups and preventive care continues according to her schedule and family medical history. Patient was informed and verbally consented to the use of an ambient scribe for clinic note documentation during this visit. I discussed with the patient the protocol for maintaining up-to-date vaccinations including influenza and COVID-19, recommending annual doses. I advised obtaining her tetanus booster at an external pharmacy. Hypertension is currently managed with amlodipine and lisinopril, with atorvastatin for hyperlipidemia. I reviewed her necessity for pending blood tests to evaluate critical biochemistries and reiterated the importance of tracking preventive testing schedules such as mammogram and Cologuard. Our conversation included reviewing her comprehensive health maintenance plan due to her family health history, and the benefits of regular screening and health evaluations. Orders: Orders Comprehensive [place]. Panel Fast Today Z00.00 - Encounter for general adult medical examination without abnormal findings Lipid Panel Today E78.5 - Hyperlipidemia, unspecified Patient Instructions: - Schedule and receive COVID-19 and influenza vaccinations in the fall. - Obtain a tetanus booster at a pharmacy. - Continue with current medications as prescribed, including amlodipine, lisinopril, atorvastatin, and meloxicam as needed. - Return for blood work to evaluate cholesterol, sugar, kidney, and liver functions. - Follow up on pending Cologuard test results. - Maintain scheduled mammogram and bone density tests. - Schedule regular follow-ups for continued preventive care.
== END 2025-01-04 12:55 | disposition home or self-care (01) ==
LOC: HO.HMCH 12:33
PROVIDERS: PCP Internal Medicine; Visit Provider Internal Medicine
DX: Z00.00 Encounter for general adult medical examination without abnormal findings (principal)

== ENCOUNTER → 2025-01-04 12:32 | Outpatient (BNVA) | payer MEDICARE, SELFPAY | PROVIDERS: PCP Internal Medicine; Visit Provider Internal Medicine | DX: I10 Essential (primary) hypertension (principal); E78.5 Hyperlipidemia, unspecified; Z79.899 Other long term (current) drug therapy | CPT/HCPCS: 96127; 99397 ==

== ENCOUNTER 2025-01-13 07:05 | Outpatient (REF) | payer MEDICARE, SELFPAY ==
[2025-01-13 08:17] LABS: Alanine Aminotransferase 46 U/L (0-31); Albumin Level 4.3 g/dL (3.5-5.0); Alkaline Phosphatase 81 U/L (39-117); Anion Gap 14 (12-20); Aspartate Amino Transferase 36 U/L (5-31); Bilirubin Total 1.2 mg/dL (0.0-1.0); Blood Urea Nitrogen 19 mg/dL (9-16); Calcium 9.3 mg/dL (8.4-10.2); Carbon Dioxide 26 mmol/L (22-29); Chloride 108 mmol/L (96-108); Cholesterol 122 mg/dL (<200); Estimated Glomerular Filt Rate 55; Glucose Fasting 118 mg/dL (60-99); HDL Cholesterol 45 mg/dL (>40); LDL Cholesterol Calculated 54 mg/dL (<100); Potassium 3.9 mmol/L (3.3-5.1); Sodium 144 mmol/L (135-145); Triglycerides 119 mg/dL (<150)
== END 2025-01-13 07:06 | disposition home or self-care (01) ==
LOC: HO.LAB 07:05
PROVIDERS: PCP Internal Medicine; Visit Provider Internal Medicine
DX: I10 Essential (primary) hypertension (principal); E78.5 Hyperlipidemia, unspecified
CPT/HCPCS: 36415; 80053; 80061

== ENCOUNTER 2025-02-11 14:02 | Outpatient (REF) | payer MEDICARE, SELFPAY | END 2025-02-11 14:03 | disposition home or self-care (01) | LOC: HO.MAMMO 14:02 | PROVIDERS: PCP Internal Medicine; Visit Provider Internal Medicine | DX: Z12.31 Encounter for screening mammogram for malignant neoplasm of breast (principal) | CPT/HCPCS: 77063; 77067 ==

== ENCOUNTER → 2025-02-11 14:30 | Outpatient (BNV) | payer MEDICARE, SELFPAY | PROVIDERS: PCP Internal Medicine; Visit Provider Internal Medicine | DX: Z12.31 Encounter for screening mammogram for malignant neoplasm of breast (principal) | CPT/HCPCS: 77063; 77067 ==

== ENCOUNTER 2025-05-05 13:51 | Outpatient (AMB) | payer MEDICARE, SELFPAY ==
--- NOTE | 2025-05-05 13:52 | MHC.OFFVIS ---
Vital Signs 05/05/25 13:53 05/05/25 14:09 Height 5 ft 4.5 in Weight 169 lb 12.095 oz BMI 28.7 BP 115/67 Blood Pressure Location Lt brachial Position Sitting Pulse 110 H 96 Pulse Source Auscultation Intake Visit Reasons: positive cologaurd Intake Note: Dalia presents in the office as a new patient for a positive cologuard. CC: She is very anxious. Allergies penicillin V Allergy (Unknown, Verified 05/05/25 13:55) anaphylaxis tetracycline Allergy (Unknown, Verified 05/05/25 13:55) rash Compazine Allergy (Unknown, Uncoded 05/05/25 13:55) convulsions Medication List - Last Reconciled 05/05/25 by Flores Britt CNP amlodipine 5 mg PO DAILY 90 days atorvastatin 20 mg PO BEDTIME 90 days blood pressure monitor (Blood Pressure Kit) As directed lidocaine 5% 1 patch topical DAILY lisinopril 20 mg PO BID 90 days meloxicam 15 mg PO DAILY HPI HPI positive cologaurd: Details: Patient is a 74-year-old female with PMH of overweight, hypertension and hyperlipidemia. Referred by PCP for positive Cologuard The patient presents following a positive Cologuard screening test collected 12/31/24 and expresses significant anxiety about pursuing a colonoscopy. No prior colonoscopy has been performed. Current gastrointestinal symptoms include heartburn occurring approximately twice weekly, relieved by [id number] antacids (Rolaids or Tums). No associated regurgitation or trouble swallowing has been reported. There are no changes in stool pattern, and bowel movements remain daily without occurrences of blood or straining. The patient denies abdominal pain, nausea, vomiting, or unexplained weight loss. Anxiety is present with concern about the preparation process for the colonoscopy. Thorough discussions regarding possible colorectal cancer risks (asymptomatic presentation) and screening options have occurred, but the patient declines colonoscopy at this time. Other notable history of well-managed hypertension, hyperlipidemia, and occasional joint pain. Patient denies: fever/chills, n/v, appetite changes, regurgitation,dysphasia, unintentional wt loss, ab pain or melena/hematochezia. Social hx: -denies ETOH use -denies recreational drug use -former smoker, cessation in teens years - family hx as below -denies personal hx of CA -denies significant cardiopulmonary history -tolerated anesthesia in the past without difficulty. [facility] Medical History (Updated 05/05/25 @ 14:39 by Flores Britt CNP) Mild acid reflux Essential hypertension Overweight Elevated blood pressure reading in office without diagnosis of hypertension Surgical History History of cholecystectomy Family History Mother Mental health disorder Father Lymphoma Social History Housing: Condominium Alcohol intake: never Patient Tobacco Use Status: Former Tobacco user Tobacco use type: Cigarette e-Cigarette/Vaping Use: Never Used Second Hand Smoke Exposure: No service: No Current occupational status: employed and retired Cognitive needs: No Hearing needs: No Vision needs: Yes Review of Systems Const Reports as per HPI ENT Reports as per HPI Card Reports as per HPI Resp Reports as per HPI GI Reports as per HPI Reports as per HPI Physical Exam Vital Signs: Last Vital Signs Pulse 110 H 05/05/25 13:53 BP 115/67 05/05/25 13:53 BMI result Body Mass Index 28.7 Const General: healthy appearing, no acute distress and well developed Nutritional Appearance: average body habitus Orientation/consciousness: patient oriented x3 HEENT Head: Yes normal to inspection, Yes normocephalic and Yes atraumatic Face and sinus: Yes normal facial exam Eyes General: appearance normal, both eyes and all related structures Neck Neck: Yes normal visual inspection Resp Effort & Inspection: normal respiratory effort, able to speak in complete sentences, no tracheal deviation and symmetric chest movement Cardio Jugular venous distension: no JVD GI Inspection: Yes distended Neuro General: patient oriented x3 Gait exam (Neuro): Normal gait present Psych Appearance: grossly normal Mental Status: mental status grossly normal Speech and movement: Normal speech and movement present Affect: Anxious affect present Attitude: cooperative Thought process: Normal thought process present Thought content: Normal thought content present Insight: Good insight present (Psych) Judgement: Good judgement present (Psych) Assessment & Plan Assessment & Plan (1) Positive colorectal cancer screening using Cologuard test: Comment: 12/31/24 Code(s): R19.5 - Other fecal abnormalities Category: Medical Plan: Positive Cologuard screening 12/31/24. Likely presence of polyps; concerns for asymptomatic colorectal cancer given positive result. Indicates potential colorectal pathology requiring diagnostic confirmation. Patient expresses significant anxiety regarding colonoscopy, specifically related to the bowel prep process and potential for excessive GI response. Multiple educational interventions provided, including written materials and video resources on bowel prep options. Patient encouraged to involve support system (sister, [id number]) in decision-making process. Declined referral to alternate GI providers at this time. Risks of undiagnosed colorectal cancer and benefits of colonoscopy discussed in detail; patient demonstrates understanding and accepts risk of forgoing recommended diagnostic evaluation. Advised to monitor for new GI symptoms (e.g., blood in stool, change in bowel habits, unexplained weight loss) and to contact clinic if concerns arise or if decision regarding colonoscopy changes. Additional Testing: Colonoscopy strongly recommended. Medication Management: None specific to Cologuard findings. Lifestyle Recommendations: Discussion with family members for emotional support; reinforce the need for informed decision-making. Follow-Up: Patient to decide on further action. Offered return visit at any time if decision changes. Provide prep information for review. (2) Mild acid reflux: Code(s): K21.9 - Gastro-esophageal reflux disease without esophagitis Category: Medical Plan: Recurrent heartburn relieved by antacids. Additional Testing: None immediately required given mild symptoms and effective relief. Consider EGD in future if symptoms worsen. Medication Management: Patient may continue OTC antacids PRN. Lifestyle Recommendations: Avoid trigger foods (e.g., spicy or acidic foods); maintain upright position after meals. Follow-Up: As needed; monitor for worsening symptoms. Plan Follow-up as needed per pt preference Time: I spent a total of 35 minutes on the date of encounter which includes: Preparing to see the patient (reviewed previous documentation, test results and medical history) Performing a medically appropriate exam and/or evaluation Ordering medications, tests, and procedures Documenting clinical information in the health record Coding Level of Care Code New Pt New Pt Level 3 (78722) Patient Type New Diagnoses Positive colorectal cancer screening using Cologuard test R19.5 Mild acid reflux K21.9
[2025-05-05 13:53] VITALS: BP 115/67; PULSE 110; BMI 28.7
[2025-05-05 14:09] VITALS: PULSE 96
== END 2025-05-05 14:28 | disposition home or self-care (01) ==
LOC: HO.HGI 13:52
PROVIDERS: PCP Internal Medicine; Visit Provider Nurse Practitioner Family
DX: R19.5 Other fecal abnormalities (principal); K21.9 Gastro-esophageal reflux disease without esophagitis
CPT/HCPCS: 99203

== ENCOUNTER → 2025-05-05 13:51 | Outpatient (BNVA) | payer MEDICARE, SELFPAY | PROVIDERS: PCP Internal Medicine; Visit Provider Nurse Practitioner Family | DX: R19.5 Other fecal abnormalities (principal); K21.9 Gastro-esophageal reflux disease without esophagitis | CPT/HCPCS: 99202 ==

== ENCOUNTER 2025-07-06 14:41 | Outpatient (AMB) | payer MEDICARE, SELFPAY ==
--- NOTE | 2025-07-06 14:57 | MHC.PC.OV ---
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 Accompanied by: Self / Same As Patient Allergies penicillin V Allergy (Unknown, Verified 07/06/25 15:24) anaphylaxis tetracycline Allergy (Unknown, Verified 07/06/25 15:24) rash Compazine Allergy (Unknown, Uncoded 07/06/25 15:24) convulsions Medication List - Last Reconciled 07/06/25 by Kimber Wagner MD amlodipine 5 mg PO DAILY 90 days atorvastatin 20 mg PO BEDTIME 90 days blood pressure monitor (Blood Pressure Kit) As directed lisinopril 20 mg PO BID 90 days meloxicam 15 mg PO DAILY Tobacco use date assessed: 07/06/25 Fall risk assessment: No Falls in past year Last assessed Fall Risk: 07/06/25 Dental Screening Dental Screen Date: 07/06/25 Did you have a dental visit in the last 12 months?: Yes Did you have a dental problem in the last 6 months where you did not have access to dental care?: No Was dental information given to patient?: Patient has dentist HPI HPI Comments History of Present Illness Details The patient is a 74-year-old female presenting for follow-up on blood pressure management. The patient has a history of essential hypertension, which has been well-controlled with medication. She is currently taking amlodipine 5 mg and lisinopril 20 mg. Her blood pressure has been excellent, and she is considering the possibility of reducing medication if her condition remains stable. The patient is allergic to penicillin, tetracycline, and Compazine, and she carries a medical alert bracelet for these allergies. She reports a toenail issue diagnosed as onychogryphosis, which is not currently causing discomfort. She has been advised that it will resolve on its own without intervention. Preventative care measures were discussed, including flu and COVID-19 vaccinations. The patient is considering receiving both vaccinations at a pharmacy. FOR[facility], [facility] Medical History Mild acid reflux Essential hypertension Overweight Elevated blood pressure reading in office without diagnosis of hypertension Surgical History History of cholecystectomy Family History Mother Mental health disorder Father Lymphoma Social History Housing: Condominium Alcohol intake: never Patient Tobacco Use Status: Former Tobacco user Tobacco use type: Cigarette e-Cigarette/Vaping Use: Never Used Second Hand Smoke Exposure: No service: No Current occupational status: employed and retired Cognitive needs: No Hearing needs: No Vision needs: Yes Questionnaire Thrive Questionnaire Date Thrive assessed: 01/04/25 I am a: Patient What is your living situation today?: I choose not to answer this question Within the past 12 months, did the food you bought not last and you didn't have the money to get more?: I choose not to answer this question Within the past 12 months, did you worry whether your food would run out before you got money to buy more?: I choose not to answer this question Do you have trouble paying for medicines?: No Do you have trouble getting transportation to medical appointments?: No Do you have trouble paying your heating and electricity bill?: No Do you have trouble taking care of your child, family member or friend?: I choose not to answer this question Do you have trouble with day-to-day activities such as bathing, preparing meals, shopping, managing finances, etc.?: I choose not to answer this question Are you currently unemployed and looking for a job?: I choose not to answer this question Are you interested in more education?: I choose not to answer this question Please select the resources that you would like help with: None Currently or been in a relationship where the following occur: I choose not to answer THRIVE Score: 0 TAMEKA-7 AMB Questionnaire TAMEKA-7 Date TAMEKA - 7 assessed: 11/30/24 Source: Developed by Drs. Davide Ponce, Mirna Lund, Kg Junior and colleagues, with an educational neymar from [employer] Review of Systems Const All systems reviewed & are unremarkable except as noted in HPI and below Card Denies chest pain at rest, Denies chest pain with activity, Denies edema, Denies irregular heart rhythm, Denies claudication, Denies dyspnea, Denies dyspnea on exertion, Denies orthopnea, Denies paroxysmal nocturnal dyspnea and Denies slow heart rate Resp Denies cough, Denies dyspnea and Denies dyspnea on exertion GI Denies abdominal pain, Denies change in bowel habits, Denies excessive flatus, Denies nausea and Denies vomiting Physical exam (Primary Care) Vital Signs: Last Vital Signs Temp 97.5 F 07/06/25 14:58 Pulse 94 07/06/25 14:58 Resp 18 07/06/25 14:58 BP 122/68 07/06/25 14:58 Pulse Ox 96 07/06/25 14:58 Oxygen Delivery Method Room Air 07/06/25 14:58 BMI result Body Mass Index 28.4 Tobacco/Smoking Status: Tobacco use Status Tobacco use date assessed 07/06/25 07/06/25 15:13 Patient Tobacco Use Status Former Tobacco user 07/06/25 14:58 Tobacco use type Cigarette 07/06/25 14:58 e-Cigarette/Vaping Use Never Used 07/06/25 14:58 Thrive Assessment: Date of Thrive Assessment Date Thrive assessed 01/04/25 07/06/25 14:58 Currently or been in a relationship where the following occur: I choose not to answer Resp Effort & Inspection: normal respiratory effort Auscultation: clear to auscultation bilaterally Cardio Jugular venous distension: no JVD Rate: regular rate Rhythm: regular rhythm Heart sounds: S1 normal heart sound present and S2 normal heart sound present Extrem General: Yes full ROM Coding Level of Care Code Est Pt Level 3 (25828) Diagnoses Essential hypertension I10 Pure hypercholesterolemia E78.00 Time Spent (min) 19 Assessment & Plan Assessment & Plan (1) Essential hypertension: Code(s): I10 - Essential (primary) hypertension Category: Medical (2) Pure hypercholesterolemia: Code(s): E78.00 - Pure hypercholesterolemia, unspecified Category: Medical Plan Plan Patient was informed and verbally consented to the use of an ambient scribe for clinic note documentation during this visit. 1. Encounter for general adult medical examination without abnormal findings Z00.00 Preventative care measures include discussing flu and COVID-19 vaccinations. The patient is advised to receive these vaccinations at a pharmacy. 2. Pure hypercholesterolemia, unspecified E78.00 Continue statin. Orders: Orders Lipid Panel 6 Months E78.5 - Hyperlipidemia, unspecified Comprehensive Priddy. Panel Fast 6 Months I10 - Essential (primary) hypertension
[2025-07-06 14:58] VITALS: BP 122/68; PULSE 94; RESP 18; TEMP 36.4; O2SAT 96; BMI 28.4
== END 2025-07-06 15:35 | disposition home or self-care (01) ==
LOC: HO.HMCH 14:42
PROVIDERS: PCP Internal Medicine; Visit Provider Internal Medicine
DX: I10 Essential (primary) hypertension (principal); E78.00 Pure hypercholesterolemia, unspecified

== ENCOUNTER → 2025-07-06 14:41 | Outpatient (BNVA) | payer MEDICARE, SELFPAY | PROVIDERS: PCP Internal Medicine; Visit Provider Internal Medicine | DX: I10 Essential (primary) hypertension (principal); E78.00 Pure hypercholesterolemia, unspecified | CPT/HCPCS: 99212 ==